=== PATIENT | female | born 1985 | race African-American/Black ===

== ENCOUNTER 2019-08-18 14:10 | Emergency (ER) | payer OTHER ==
[~2019-08-18] VITALS: Ht 165.1 cm; Wt 60.3 kg
[2019-08-18 15:17] VITALS: BP 99/61
--- NOTE | 2019-08-18 15:18 | NUR ---
Patient discharged to home in stable conditon. Written and verbal after care instructions given. Patient verbalizes understanding of instructions.
== END 2019-08-18 15:18 | disposition home or self-care (01) ==
LOC: ER 14:10
DX: S01.511A Laceration without foreign body of lip, initial encounter (principal); Z88.1 Allergy status to other antibiotic agents; X58.XXXA Exposure to other specified factors, initial encounter; Y93.66 Activity, soccer; Y92.89 Other specified places as the place of occurrence of the external cause; Y99.8 Other external cause status
CPT/HCPCS: 12011; 99283; J3490; A4663